=== PATIENT | female | born 1985 | race Caucasian/White ===

== ENCOUNTER 2022-08-11 23:05 | Emergency (ER) | payer BC ==
[2022-08-11 23:28] VITALS: O2SAT 99
[2022-08-11] MEDS ORDERED: DECADRON 10MG INJ. IM ONE (23:29)
[2022-08-11] MEDS ORDERED: TORAdol 30 mg Injection IM ONE (23:30)
[2022-08-11] MEDS ORDERED: TORAdol 30 mg Injection ONE (23:39)
[2022-08-11] MEDS ORDERED: DECADRON 10MG INJ. ONE (23:39)
--- NOTE | 2022-08-12 00:03 | ERPHSYRPT ---
- History of Present Illness Time Seen by Provider: 08/11/22 23:56 Source: patient Exam Limitations: no limitations Patient Subjective Stated Complaint: pt states "I have trigeminal neuralgia and it has flared up that started yesterday." Triage Nursing Assessment: pt ambulatory to bed by self, pt alert and oriented x3, pt c/o L sided jaw pain, pt has trigeminal neuralgia, pt's flare up started yesterday, pt states "usually I take motrin and tylenol but it hasn't touched my pain." Physician History: Patient is a 37-year-old female presents to our ED for evaluation of a flareup of trigeminal neuralgia. Patient states she has had flareups in the past that responded to Tylenol Motrin. However patient's current flareup is not responding. Patient took 1 g of Tylenol prior to arrival. No trauma. No fever. Patient states the pain is radiating into her teeth. Symptoms are moderate in intensity. No specific worsening improving factors. Patient is otherwise healthy. She voices no other complaints concerns at this time. Portions of this note were created with voice recognition technology. There may be grammatical, spelling, punctuation or sound alike errors Timing/Duration: today Severity: moderate Modifying Factors: Improves With: nothing Associated Symptoms: denies symptoms Allergies/Adverse Reactions: No Known Drug Allergies Allergy (Verified 08/11/22 23:12) Hx Tetanus, Diphtheria Vaccination/Date Given: (unk) Hx Influenza Vaccination/Date Given: No Hx Pneumococcal Vaccination/Date Given: No Immunizations Up to Date: Yes Travel Risk - International Travel Have you traveled outside of the country in past 3 weeks: No - Coronavirus Screening Are you exhibiting any of the following symptoms?: No Close contact with a COVID-19 positive Pt in past 14-21 Days: No - Vaccine Status Have you recieved a Covid-19 vaccination: Yes [employer]: [employer] - Vaccination Dates Date of 2cond Vaccination (if applicable): 04/2020 - Review of Systems Constitutional: No Symptoms, No Fever, No Chills Eyes: No Symptoms Ears, Nose, & Throat: No Symptoms Respiratory: No Symptoms, No Cough, No Dyspnea Cardiac: No Symptoms, No Chest Pain, No Edema, No Syncope Abdominal/Gastrointestinal: No Symptoms, No Abdominal Pain, No Nausea, No Vomiting, No Diarrhea Genitourinary Symptoms: No Symptoms, No Dysuria Musculoskeletal: No Symptoms, No Back Pain, No Neck Pain Skin: No Symptoms, No Rash Neurological: No Symptoms, No Dizziness, No Focal Weakness, No Sensory Changes Psychological: No Symptoms Endocrine: No Symptoms Hematologic/Lymphatic: No Symptoms Immunological/Allergic: No Symptoms All Other Systems: Reviewed and Negative - Past Medical History Pertinent Past Medical History: Yes Neurological History: No Pertinent History ENT History: No Pertinent History Cardiac History: No Pertinent History Respiratory History: No Pertinent History Endocrine Medical History: No Pertinent History Musculoskeletal History: No Pertinent History GI Medical History: No Pertinent History History: No Pertinent History Psycho-Social History: No Pertinent History Female Reproductive Disorders: No Pertinent History Other Medical History: trigeminal neuralgia - Past Surgical History Past Surgical History: Yes Neuro Surgical History: No Pertinent History Cardiac: No Pertinent History Respiratory: No Pertinent History Gastrointestinal: No Pertinent History Genitourinary: No Pertinent History Musculoskeletal: No Pertinent History Female Surgical History: Section, Other Other Surgical History: uterine ablation - Social History Smoking Status: Former smoker Exposure to second hand smoke: No Drug Use: none Patient Lives Alone: No - Female History Hx Last Menstrual Period: 07/25/22 Hx Now: No - Nursing Vital Signs Nursing Vital Signs: Initial Vital Signs Temperature 98.8 F 08/11/22 23:13 Pulse Rate 85 08/11/22 23:13 Respiratory Rate 18 08/11/22 23:13 Blood Pressure 184/115 08/11/22 23:13 O2 Sat by Pulse Oximetry 99 08/11/22 23:13 Pain Scale Pain Intensity 10 - Physical Exam General Appearance: no apparent distress, alert Eye Exam: PERRL/EOMI, eyes nml inspection Ears, Nose, Throat Exam: normal ENT inspection, TMs normal, pharynx normal, moist mucous membranes, other (Tenderness to palpation along the left trigeminal nerve distribution. Overlying soft tissue intact. No signs of trauma) Neck Exam: normal inspection, non-tender, supple, full range of motion Respiratory Exam: normal breath sounds, lungs clear, airway intact, No respiratory distress Cardiovascular Exam: regular rate/rhythm, normal heart sounds, normal peripheral pulses Gastrointestinal/Abdomen Exam: soft, normal bowel sounds, No tenderness, No mass Back Exam: normal inspection, normal range of motion, No CVA tenderness, No vertebral tenderness Extremity Exam: normal inspection, normal range of motion, pelvis stable Neurologic Exam: alert, oriented x 3, cooperative, normal mood/affect, nml cerebellar function, nml station & gait, sensation nml, No motor deficits Skin Exam: normal color, warm, dry, No rash Lymphatic Exam: No adenopathy SpO2 Interpretation: normal SpO2: 99 O2 Delivery: Room Air - Course Nursing assessment & vital signs reviewed: Yes Ordered Tests: Medication Summary Discontinued Medications Generic Name Dose Route Start Last Admin Trade Name Leeanne PRN Reason Stop Dose Admin Dexamethasone Sodium Phosphate 10 mg 08/11/22 23:29 08/11/22 23:40 Dexamethasone Sod Phosphate 10 Mg/Ml IM 08/11/22 23:30 10 mg STAT ONE Administration Dexamethasone Sodium Phosphate Confirm 08/11/22 23:39 Dexamethasone Sod Phosphate 10 Mg/Ml Administered 08/11/22 23:40 Dose 10 mg .ROUTE .STK-MED ONE Ketorolac Tromethamine 30 mg 08/11/22 23:30 08/11/22 23:40 Ketorolac Tromethamine 30 Mg/Ml Inj IM 08/11/22 23:31 30 mg STAT ONE Administration Ketorolac Tromethamine Confirm 08/11/22 23:39 Ketorolac Tromethamine 30 Mg/Ml Inj Administered 08/11/22 23:40 Dose 30 mg .ROUTE .STK-MED ONE - Progress Progress: improved Progress Note: 37-year-old female presents to our emergency department for treatment of trigeminal neuralgia flareup. Patient received Toradol and Decadron. Pain significantly improved. Will discharge home. Patient agrees to follow-up with her primary care doctor within 48 hours for evaluation. Patient voices no other complaints or concerns at this time. Portions of this note were created with voice recognition technology. There may be grammatical, spelling, punctuation or sound alike errors Complexity of problems addressed is low, acute uncomplicated. No critical care time Complexity of data reviewed and analyzed is none. Diagnosis made based on history and physical examination. No specialized testing indicated. Served as independent historian Risk of complication and or risk of morbidity/mortality of patient management is moderate. Patient received IM Toradol and IM Decadron. Prescription for Toradol was forwarded to patient's pharmacy. Patient agrees to follow-up with her primary care doctor within 48 hours for evaluation. Time for discharge is approximately 10 to 15 minutes. Plan of care established via shared decision making. No social determinants of health present to impede follow-up. Portions of this note were created with voice recognition technology. There may be grammatical, spelling, punctuation or sound alike errors 08/12/22 00:00 Counseled pt/family regarding: diagnosis, need for follow-up - Departure Departure Disposition: Home Clinical Impression: Trigeminal neuralgia of left side of face Condition: Stable Critical Care Time: No Referrals: LIZZIE SEVILLA, EMPLOYMENT RECRUITER [Primary Care Provider] - Follow up/PCP as directed Additional Instructions: Discharge/Care Plan PAOLA CHINO was seen on 08/12/22 in the Emergency Room. The patient was counseled regarding Diagnosis,Lab results, Imaging studies, need for follow up and when to return to the Emergency Room. Prescriptions given: Discharge Note I have spoken with the patient and/or caregivers. I have explained the patient's condition, diagnosis and treatment plan based on the information available to me at this time. I have answered the patient's and/or caregiver's questions and addressed any concerns. The patient and/or caregivers have as good understanding of the patient's diagnosis, condition and treatment plan as can be expected at this point. The vital signs have been stable. The patient's condition is stable and appropriate for discharge from the emergency department. The patient will pursue further outpatient evaluation with the primary care physician or other designated or consulting physician as outlined in the discharge instructions. The patient and/or caregivers are agreeable to this plan of care and follow-up instructions have been explained in detail. The patient and/or caregivers have received these instruction. The patient/and or caregivers are aware that any significant change in condition or worsening of symptoms should prompt an immediate return to this or the closest emergency department or call 911. Prescriptions: Ketorolac Trometh 10 mg Tab [TORAdol 10 MG TABLET] 10 mg PO TID 5 Days #15 tablet
[2022-08-12 00:10] VITALS: PULSE 66
[2022-08-12 00:25] VITALS: BP 143/98
== END 2022-08-12 00:24 | disposition home or self-care (01) ==
LOC: ED 23:05
DX: G50.0 Trigeminal neuralgia (principal)
CPT/HCPCS: 96372; 99283; J1100; J1885

== ENCOUNTER 2023-10-05 14:36 | Emergency (ER) | payer BC ==
[2023-10-05 14:58] VITALS: TEMP 97.2
[2023-10-05] MEDS ORDERED: DECADRON 10MG INJ. ONE (15:33)
[2023-10-05] MEDS ORDERED: TORAdol 30 mg Injection ONE (15:33)
[2023-10-05] MEDS: TORAdol 30 mg Injection IM ONE (15:34)
[2023-10-05] MEDS: Decadron 4 MG INJ IM ONE (15:35)
--- NOTE | 2023-10-05 16:20 | ERPHSYRPT ---
- History of Present Illness Time Seen by Provider: 10/05/23 14:42 Source: patient Exam Limitations: no limitations Patient Subjective Stated Complaint: pt here for pain to right side of face today, she has hx of trigeminal neralgia, she states she meds at home are not helping,she is also on antibotics for a fractured widsom tooth Triage Nursing Assessment: pt alert, walked in, steady gait, resp easy, skin w/d/p. no distress, able to talk well, no swelling or brusing noted to face Physician History: 38 years old female with history of trigeminal neuralgia presented in the ER with complains of increasing pain on the right face with radiation to the right side of head since yesterday. Patient has taken her routine medication with no significant relief. Denies any blurry vision, numbness or weakness. Reports h aving similar symptoms multiple times in the past which usually gets better with taking home medication but sometimes she has to have a steroid shot. Patient reports aggravation of pain with touching and movements and even chewing food on the left side. Denies any fever or chills. She does have a broken wisdom tooth and is on antibiotics. Tooth injury is on the left side. Allergies/Adverse Reactions: No Known Drug Allergies Allergy (Verified 10/05/23 14:45) Home Medications: Carbamazepine 200 mg [Tegretol 200 MG] 300 mg PO TID 08/12/22 [History] Hx Tetanus, Diphtheria Vaccination/Date Given: (unk) Hx Influenza Vaccination/Date Given: No Hx Pneumococcal Vaccination/Date Given: No Immunizations Up to Date: Yes Travel Risk - International Travel Have you traveled outside of the country in past 3 weeks: No - Emerging Infectious Disease Are you exhibiting symptoms associated with any current EIDs: No - Review of Systems Constitutional: No Symptoms Eyes: No Symptoms Ears, Nose, & Throat: Loose Teeth Respiratory: No Symptoms Cardiac: No Symptoms Abdominal/Gastrointestinal: No Symptoms Genitourinary Symptoms: No Symptoms Musculoskeletal: No Symptoms Neurological: Sensory Changes Psychological: No Symptoms Endocrine: No Symptoms Hematologic/Lymphatic: No Symptoms - Past Medical History Pertinent Past Medical History: Yes Neurological History: No Pertinent History ENT History: No Pertinent History Cardiac History: No Pertinent History Respiratory History: No Pertinent History Endocrine Medical History: No Pertinent History Musculoskeletal History: No Pertinent History GI Medical History: No Pertinent History History: No Pertinent History Psycho-Social History: No Pertinent History Female Reproductive Disorders: No Pertinent History Other Medical History: trigeminal neuralgia - Past Surgical History Past Surgical History: Yes Neuro Surgical History: No Pertinent History Cardiac: No Pertinent History Respiratory: No Pertinent History Gastrointestinal: No Pertinent History Genitourinary: No Pertinent History Musculoskeletal: No Pertinent History, Orthopedic Surgery Female Surgical History: Section, Other Other Surgical History: uterine ablation,shoulder,bicep - Female History Hx Last Menstrual Period: now Hx Now: No - Social History Smoking Status: Former smoker Exposure to second hand smoke: Yes Drug Use: none Patient Lives Alone: No - Social Determinants of Health Will the patient participate in the screening: Declined to provide - Nursing Vital Signs Nursing Vital Signs: Initial Vital Signs Temperature 97.2 F 10/05/23 14:56 Pulse Rate 90 10/05/23 14:56 Respiratory Rate 18 10/05/23 14:56 Blood Pressure 169/108 10/05/23 14:56 O2 Sat by Pulse Oximetry 100 10/05/23 14:56 Pain Scale Pain Intensity 6 - Physical Exam General Appearance: no apparent distress, alert Eye Exam: PERRL/EOMI, eyes nml inspection Ears, Nose, Throat Exam: normal ENT inspection, TMs normal, pharynx normal, moist mucous membranes, other (Increase sensitivity to light touch on the right face) Neck Exam: normal inspection, non-tender, supple, full range of motion Respiratory Exam: normal breath sounds, lungs clear Cardiovascular Exam: regular rate/rhythm, normal heart sounds Extremity Exam: normal inspection, normal range of motion, pelvis stable Neurologic Exam: alert, oriented x 3, cooperative, brokerage manager II-XII nml as tested, normal mood/affect, nml cerebellar function, nml station & gait, other (Hyperesthesia on the right face), No sensation nml, No motor deficits Skin Exam: normal color SpO2 Interpretation: normal SpO2: 100 O2 Delivery: Room Air Ordered Tests: Medication Summary Discontinued Medications Generic Name Dose Route Start Last Admin Trade Name Freq PRN Reason Stop Dose Admin Dexamethasone Sodium Phosphate 10 mg 10/05/23 15:12 10/05/23 15:35 Dexamethasone Sod Phosphate 4 Mg/Ml Ml IM 10/05/23 15:13 10 mg STAT ONE Administration Dexamethasone Sodium Phosphate Confirm 10/05/23 15:33 Dexamethasone Sod Phosphate 10 Mg/Ml Administered 10/05/23 15:34 Dose 10 mg .ROUTE .STK-MED ONE Ketorolac Tromethamine 30 mg 10/05/23 15:11 10/05/23 15:34 Ketorolac Tromethamine 30 Mg/Ml Inj IM 10/05/23 15:12 30 mg STAT ONE Administration Ketorolac Tromethamine Confirm 10/05/23 15:33 Ketorolac Tromethamine 30 Mg/Ml Inj Administered 10/05/23 15:34 Dose 30 mg .ROUTE .STK-MED ONE - Progress Progress: improved Progress Note: 10/05/23 16:18 38 years old is evaluated for right facial pain with flareup of trigeminal neuralgia. She has no other focal neurosymptoms. She is given Toradol and dexamethasone, on reevaluation her pain is significantly improved. Neuroexam remains nonfocal. She is advised to continue with her home medication and will give a short course of steroid. Do not think patient needs imaging or any other workup and is stable for discharge with outpatient follow-up with primary care and neurology for further evaluation and to discuss other treatment options like nerve ablations etc. patient blood pressure was in 170s on presentation, does not have a history of hypertension and I believe it was more secondary to pain and after above treatment it improved and 140s. Recommended keeping a log and outpatient follow-up to see if she needs treatment for that or not. Discussed signs symptoms of worsening needing return to ER which she seems understanding as well. 10/05/23 16:19 Counseled pt/family regarding: diagnosis, need for follow-up Medical Desision Making - Diagnostic Testing Diagnostic test were ordered, analyzed, and reviewed by me: No - Risk of complications The pt has a mod risk of morbidity or mortality based on: Need for prescription drug management - Departure Departure Disposition: Home Clinical Impression: Trigeminal neuralgia of right side of face Condition: Stable Critical Care Time: No Referrals: LIZZIE SEVILLA NP [Primary Care Provider] - Follow up with PCP 1 day Instructions: Malignant Hypertension (DC), Trigeminal neuralgia Additional Instructions: Continue with your current medications. Follow-up with your primary care for reevaluation and may need referral for neurology/pain management for further options of treatments. Return to ER for any worsening of pain, numbness weakness, visual disturbance etc. Prescriptions: Prednisone 20 mg [Deltasone 20 mg] 60 mg PO DAILY 5 Days #15 tablet
[2023-10-05 16:53] VITALS: BP 120/78; PULSE 60; RESP 16; O2SAT 97
== END 2023-10-05 16:55 | disposition home or self-care (01) ==
LOC: ED 14:36
DX: G50.0 Trigeminal neuralgia (principal); Z79.52 Long term (current) use of systemic steroids; Z79.899 Other long term (current) drug therapy
CPT/HCPCS: 96372; 99283; J1100; J1885